=== PATIENT | female | born 1965 | race Caucasian/White ===

== ENCOUNTER 2017-08-22 13:06 | Emergency (ER) | payer MEDICARE ==
[~2017-08-22] VITALS: Ht 175.3 cm; Wt 70.3 kg
[~2017-08-22 13:06] MED LIST: BUPR100 PO; BUPR150ER PO; CHOL10002 PO; CYCL10 PO; Desyrel50 MG PO; GABA300 PO; LEVE500 PO; Norco 5-325 Ta1 EACH PO; Percocet 5-3251 EACH PO; Prozac20 MG PO; THIA100 PO; VITAMIN B-1100 MG PO; VITB2
[2017-08-22] MEDS ORDERED: DULO30 PO (13:27)
[2017-08-22] MEDS ORDERED: TRAZ150T57 PO (13:28)
[2017-08-22] MEDS ORDERED: GABA600 (13:28)
[2017-08-22 13:52] LABS: BASOPHILS ABSOLUTE AUTO 0.04 K/mm3 (0.00-0.23); BASOPHILS PERCENT AUTO 1 % (0-2); EOSINOPHILS ABSOLUTE AUTO 0.03 K/mm3 (0.00-0.68); EOSINOPHILS PERCENT AUTO 0 % (0-6); Hematocrit 41.1 % (33.0-51.0); IMMATURE GRAN ABSOLUTE AUTO 0.01 K/mm3 (0.00-0.10); IMMATURE GRAN PERCENT AUTO 0 % (0-1); LYMPHOCYTES ABSOLUTE AUTO 1.81 K/mm3 (0.84-5.20); LYMPHOCYTES PERCENT AUTO 26 % (21-46); MONOCYTES ABSOLUTE AUTO 0.68 K/mm3 (0.16-1.47); MONOCYTES PERCENT AUTO 10 % (4-13); Mean Corpuscular HGB Conc 36.5 g/dL (31.5-36.5); Mean Corpuscular Volume 99 fL (80-100); NEUTROPHILS ABSOLUTE AUTO 4.53 K/mm3 (1.96-9.15); NEUTROPHILS PERCENT AUTO 64 % (41-73); Platelet Count 191 K/mm3 (150-400); RDW Coefficient Variation 11.6 % (11.7-14.2); RDW Standard Deviation 42.4 fL (35.1-46.3); Red Blood Cell Count 4.17 M/mm3 (3.80-5.20)
[2017-08-22 15:16] LABS: Albumin, Blood 4.5 g/dL (3.4-5.0); Albumin/Globulin Ratio 1.2 (0.8-1.8); Bilirubin, Total 1.3 mg/dL (0.1-1.0); Bun/Creatinine Ratio 15.3 (12.0-20.0); Calcium, Blood 9.5 mg/dL (8.5-10.1); Creatinine, Blood 1.11 mg/dL (0.40-1.00); Globulin, Blood 3.8 g/dL (2.2-4.0); Potassium, Blood 3.5 mmol/L (3.5-5.5); Total Protein, Blood 8.3 g/dL (6.4-8.2)
== END 2017-08-22 18:35 | disposition home or self-care (01) ==
LOC: ER 13:06
PROVIDERS: Emergency Medicine
DX: S00.03XA Contusion of scalp, initial encounter (principal); R42 Dizziness and giddiness; W22.8XXA Striking against or struck by other objects, initial encounter; Z79.899 Other long term (current) drug therapy
CPT/HCPCS: 36415; 70450; 80053; 84484; 85025; 85730; 99284

== ENCOUNTER → 2018-12-19 | Outpatient (CLI) | payer MEDICARE ==
[~2018-12-19] MED LIST changes: +DULO30 PO; +GABA600; +TRAZ150T57 PO
[2018-12-20 10:56] LABS: Candida species (DNA Probe) Negative (NEGATIVE); G. vaginalis (DNA Probe) Negative (NEGATIVE); T. vaginalis (DNA Probe) Negative (NEGATIVE)
[2018-12-23 15:07] LABS: HPV 16 Negative (Negative); HPV 18 Negative (Negative); HPV OTHER HR TYPES Positive (Negative)
== END | disposition home or self-care (01) ==
LOC: LAB SHORT 17:44 → LAB 17:44
PROVIDERS: Family Medicine
DX: Z12.4 Encounter for screening for malignant neoplasm of cervix (principal); N89.8 Other specified noninflammatory disorders of vagina
CPT/HCPCS: 87480; 87510; 87624; 87625; 87660; G0145

== ENCOUNTER → 2020-09-01 | Outpatient (CLI) | payer MEDICARE | LOC: LAB 14:00 → LAB SHORT 14:00 | DX: L71.8 Other rosacea (principal); L20.89 Other atopic dermatitis | CPT/HCPCS: 87070; 87205 ==

== ENCOUNTER 2021-01-07 09:30 | Observation (INO) | payer MEDICARE ==
[~2021-01-07] VITALS: Ht 172.7 cm; Wt 68.0 kg
[~2021-01-07 09:30] MED LIST changes: +GABA100; -GABA600
[2021-01-07 10:19] LABS: BASOPHILS ABSOLUTE AUTO 0.02 K/mm3 (0.00-0.23); BASOPHILS PERCENT AUTO 0 % (0-2); EOSINOPHILS ABSOLUTE AUTO 0.02 K/mm3 (0.00-0.68); EOSINOPHILS PERCENT AUTO 0 % (0-6); Hemoglobin 14.6 g/dL (11.5-16.0); IMMATURE GRAN ABSOLUTE AUTO 0.03 K/mm3 (0.00-0.10); IMMATURE GRAN PERCENT AUTO 1 % (0-1); LYMPHOCYTES ABSOLUTE AUTO 0.87 K/mm3 (0.84-5.20); LYMPHOCYTES PERCENT AUTO 13 % (21-46); MONOCYTES ABSOLUTE AUTO 0.47 K/mm3 (0.16-1.47); MONOCYTES PERCENT AUTO 7 % (4-13); Mean Corpuscular HGB 37.4 pg (26.0-34.0); Mean Corpuscular HGB Conc 36.5 g/dL (31.5-36.5); Mean Corpuscular Volume 103 fL (80-100); Mean Platelet Volume 10.9 fL (9.1-12.4); NEUTROPHILS PERCENT AUTO 79 % (41-73); Platelet Count 72 K/mm3 (150-400); RDW Coefficient Variation 11.1 % (11.7-14.2); RDW Standard Deviation 42.4 fL (35.1-46.3); White Blood Cell Count 6.61 K/mm3 (4.00-11.30)
[2021-01-07] MEDS ORDERED: BUSP5 PO (10:37)
[2021-01-07] MEDS ORDERED: Prozac40 MG PO (10:37)
[2021-01-07 10:39] LABS: Bilirubin, Total 2.1 mg/dL (0.1-1.0); Calcium, Blood 9.5 mg/dL (8.5-10.1); Creatinine, Blood 1.09 mg/dL (0.40-1.00); Globulin, Blood 3.9 g/dL (2.2-4.0); Potassium, Blood 3.7 mmol/L (3.5-5.5); Total Protein, Blood 7.9 g/dL (6.4-8.2)
--- NOTE | 2021-01-07 18:38 | NUR ---
SHIFT SUMMARY PT RECEIVED FROM ER. ALERT AND ORIENTED X4. WEAK, BUT TRANSFERED FROM WC TO BED WITH 2 PERSON ASSIST. SLING TO RIGHT ARM FOR CLAVICLE FRACTURE. LUNG SOUNDS CLEAR, HEART TONES REGULAR. PT IS TEARFUL, BUT CALMER SHE GOT SETTLED IN BED. WILL CONTINUE TO MONITOR AND REPORT OFF TO PARISH WORKER RN.
--- NOTE | 2021-01-07 21:32 | NUR ---
PT COMPLAINED OF PAIN ACROSS THE BACK OF THE SHOULDERS. RN ASSISTED PT TO RECLINER CHAIR TO HELP REPOSITION. ICE APPLIED ON THE SHOULDER AREA. PO FLUIDS AT CHAIR SIDE. WARM BLANKETS PROVIDED. PRN PAIN MEDICATIONS PROVIDED. PT IS NOW PLAYING ON HER TABLET AND HAS CALL LIGHT IN REACH.
--- NOTE | 2021-01-08 05:16 | NUR ---
SHIFT SUMMARY PT SLEPT OFF AND ON THROUGHOUT THE NIGHT. PT OCCASSIONALLY C/O SHOULDER PAIN; PAIN TREATED WITH PRN PO PAIN MEDICATION. PT HAS PAS ON AND RUNNING. RN ASSISTED PT TO REPOSITION SEVERAL TIMES THROUGHOUT THE NIGHT FOR COMFORT. PT ALERT AND ORIENTED X4, PLEASANT AND COOPERATIVE. SHE AWOKE AT APPROXIMATELY 0500 AND REQUESTED A SANDWICH AND JUICE WHICH SHE SEEMS TO HAVE TOLERATED WELL. SHE IS CURRENTLY PLAYING GAMES ON HER PHONE AND RESTING. NS CURRENTLY RUNNING ON PUMP PER DR'S ORDERS. CALL LIGHT IN REACH, UPPER SIDE RAILS UP FOR SAFTY.
[2021-01-08 06:27] LABS: BASOPHILS ABSOLUTE AUTO 0.02 K/mm3 (0.00-0.23); BASOPHILS PERCENT AUTO 1 % (0-2); EOSINOPHILS ABSOLUTE AUTO 0.04 K/mm3 (0.00-0.68); EOSINOPHILS PERCENT AUTO 1 % (0-6); Hemoglobin 11.7 g/dL (11.5-16.0); IMMATURE GRAN ABSOLUTE AUTO 0.01 K/mm3 (0.00-0.10); IMMATURE GRAN PERCENT AUTO 0 % (0-1); LYMPHOCYTES ABSOLUTE AUTO 1.35 K/mm3 (0.84-5.20); LYMPHOCYTES PERCENT AUTO 37 % (21-46); MONOCYTES ABSOLUTE AUTO 0.38 K/mm3 (0.16-1.47); MONOCYTES PERCENT AUTO 11 % (4-13); Mean Corpuscular HGB 37.3 pg (26.0-34.0); Mean Corpuscular HGB Conc 35.5 g/dL (31.5-36.5); Mean Corpuscular Volume 105 fL (80-100); NEUTROPHILS ABSOLUTE AUTO 1.81 K/mm3 (1.96-9.15); NEUTROPHILS PERCENT AUTO 50 % (41-73); RDW Coefficient Variation 11.1 % (11.7-14.2); RDW Standard Deviation 43.5 fL (35.1-46.3); Red Blood Cell Count 3.14 M/mm3 (3.80-5.20); White Blood Cell Count 3.61 K/mm3 (4.00-11.30)
[2021-01-08 06:40] LABS: Platelet Count 50 K/mm3 (150-400)
[2021-01-08 06:48] LABS: Alanine Aminotransfer (ALT/SGP 81 U/L (12-78); Alk Phos 63 U/L (50-136); Anion Gap 7 mmol/L (6-16); Aspartate Aminotrans (AST/SGOT 149 U/L (12-37); Bilirubin, Total 1.5 mg/dL (0.1-1.0); Blood Urea Nitrogen 10 mg/dL (8-24); Bun/Creatinine Ratio 12.5 (12.0-20.0); CO2, Blood 28 mmol/L (21-32); Calcium, Blood 8.6 mg/dL (8.5-10.1); Chloride, Blood 104 mmol/L (98-108); Globulin, Blood 3.1 g/dL (2.2-4.0); Glomerular Filtration Rate >60 (60-); Glucose, Blood 125 mg/dL (70-99); Potassium, Blood 2.9 mmol/L (3.5-5.5); Sodium, Blood 139 mmol/L (136-145); Total Protein, Blood 6.1 g/dL (6.4-8.2)
--- NOTE | 2021-01-08 16:16 | NUR ---
Introduction: PT refered by physician. Assessment: PT presented seated upright in bed, melancholy expression. After a brief introduction and pleasantry I asked if PT would like to chat. PT became tearful and stated, "I feel very alone." I asked to tell me more, PT explained that she lives alone, with two cats and has no family in the area. I asked what gave PT hope, PT replied,"Friends in [place] and the hope that she'll reconnect with her mother." I asked PT what she could control, here in the hospital, PT replied with enthusiasm,"Physical Therapy, drinking lots of water, eating all her meals and getting sleep." Intervention: PT offered plan to call a neighbor to take care of cats at her home. PT offered a new focus, while at the hospital. PT offered prayer. Outcome: PT agreed to call neighbor to care for cats, and relieve a little worry. PT seemed determined to focus on healing, while at the hospital. PT accepted prayer. Follow-Up: As needed or requested.
--- NOTE | 2021-01-08 18:30 | NUR ---
SHIFT SUMMARY PT RESTING IN BED AND RECLINER THROUGHOUT THE DAY. VSS. ALERT AND ORIENTED X4. LUNG SOUNDS CLEAR, HEART TONES REGULAR. C/O "ALL OVER" PAIN /, MEDICATED WITH PRN ORDERED MEDS. BRUISING NOTED ALL OVER HER BACK AND R SHOULDER. PT APPEARS DEPRESSED, TEARFUL OFF AND ON TODAY. SPOKE WITH DYE MACHINE OPERATOR THIS AFTERNOON. WILL CONTINUE TO MONITOR AND REPORT OFF TO HOT PACKER RN.
--- NOTE | 2021-01-09 02:45 | NUR ---
NIGHTTIME ROUNDING PT SLEPT SOUNDLY UNTIL 0230. PT WOKE UP AND TURNED ON THE TABLET. PT REQUESTED A SNACK WHICH WAS PROVIDED BY RN. PT DENIES THE NEED FOR ADDITIONAL BLANKETS OR BED ADJUSTMENT. PAS CONTINUE TO RUN. CALL LIGHT IN REACH. BED IS IN IT'S LOWEST, LOCKED POSITION.
[2021-01-09 06:45] LABS: BASOPHILS ABSOLUTE AUTO 0.03 K/mm3 (0.00-0.23); BASOPHILS PERCENT AUTO 1 % (0-2); EOSINOPHILS ABSOLUTE AUTO 0.09 K/mm3 (0.00-0.68); EOSINOPHILS PERCENT AUTO 3 % (0-6); Hematocrit 32.7 % (33.0-51.0); Hemoglobin 11.3 g/dL (11.5-16.0); IMMATURE GRAN ABSOLUTE AUTO 0.02 K/mm3 (0.00-0.10); IMMATURE GRAN PERCENT AUTO 1 % (0-1); LYMPHOCYTES ABSOLUTE AUTO 1.32 K/mm3 (0.84-5.20); LYMPHOCYTES PERCENT AUTO 37 % (21-46); MONOCYTES ABSOLUTE AUTO 0.64 K/mm3 (0.16-1.47); MONOCYTES PERCENT AUTO 18 % (4-13); Mean Corpuscular HGB Conc 34.6 g/dL (31.5-36.5); Mean Corpuscular Volume 107 fL (80-100); Mean Platelet Volume 10.7 fL (9.1-12.4); NEUTROPHILS ABSOLUTE AUTO 1.48 K/mm3 (1.96-9.15); NEUTROPHILS PERCENT AUTO 41 % (41-73); Platelet Count 60 K/mm3 (150-400); RDW Coefficient Variation 11.3 % (11.7-14.2); RDW Standard Deviation 44.4 fL (35.1-46.3); Red Blood Cell Count 3.05 M/mm3 (3.80-5.20); White Blood Cell Count 3.58 K/mm3 (4.00-11.30)
[2021-01-09 07:04] LABS: Alanine Aminotransfer (ALT/SGP 72 U/L (12-78); Alk Phos 58 U/L (50-136); Anion Gap 6 mmol/L (6-16); Aspartate Aminotrans (AST/SGOT 107 U/L (12-37); Bilirubin, Total 1.1 mg/dL (0.1-1.0); Blood Urea Nitrogen 5 mg/dL (8-24); Bun/Creatinine Ratio 7.5 (12.0-20.0); CO2, Blood 28 mmol/L (21-32); Calcium, Blood 8.4 mg/dL (8.5-10.1); Chloride, Blood 103 mmol/L (98-108); Creatinine, Blood 0.66 mg/dL (0.40-1.00); Globulin, Blood 3.1 g/dL (2.2-4.0); Glomerular Filtration Rate >60 (60-); Glucose, Blood 82 mg/dL (70-99); Potassium, Blood 3.3 mmol/L (3.5-5.5); Sodium, Blood 137 mmol/L (136-145); Total Protein, Blood 6.1 g/dL (6.4-8.2)
--- NOTE | 2021-01-09 17:54 | NUR ---
SHIFT SUMMARY PT RESTING IN BED THROUGHOUT THE DAY. UP TO RECLINER X1. PT DOING PHYSICAL THERAPY EXERCISES INSTRUCTED T/O THE DAY. PT SEEMS TO BE IN BETTER SPIRITS TODAY, JOKING WITH STAFF AND SMILING. PT VERY WEAK, 1 PERSON ASSIST TO WC TO GO TO BATHROOM. C/O PAIN TO RIGHT SHOULDER, MEDICATED WITH PRN PAIN MEDS, SEE EMAR. WILL CONTINUE TO MONITOR AND REPORT OFF TO CLOTH STRETCHER.
--- NOTE | 2021-01-10 00:31 | NUR ---
NIGHTSHIFT UPDATE PT IS RESTING COMFORTABLY AT THIS TIME. NO NEEDS AT THIS TIME. CALL LIGHT IN REACH.
--- NOTE | 2021-01-10 04:39 | NUR ---
PT TO RESTROOM/PAIN TREATMENT PT WAS TAKEN TO THE RESTROOM VIA WHEELCHAIR WITH ONE PERSON TRANSFER. PT WAS ABLE TO VOID. PT RETURNED TO ROOM AND POSITIONED WITH PILLOWS. PT STATED HER PAIN WAS 8/10. RN TREATED WITH PO PAIN MEDICATION'S PER 'S ORDERS. RN OFFERRED ICE, PT DECLINED AT THIS TIME. VSS. TABLET AND CALL LIGHT PROVIDED. PAS APPLIED AND TURNED ON.
--- NOTE | 2021-01-10 06:03 | NUR ---
SHIFT SUMMARY PT SLEPT WELL THROUGHOUT THE NIGHT. PT TREATED TWICE FOR BILATERAL SHOULDER PAIN PER 'S PO PAIN MEDICATION ORDERS. VSS. PT WAS TAKEN TO THE RESTROOM IN THE WHEELCHAIR TO VOID X1. PT TRANSFERRED WITH ONE PERSON ASSIST. PT STATED "I FEEL LIKE I AM GETTING STRONGER." PT IS NOW RESTING IN BED WATCHING TV. SHE TOLERATED A SNACK AND HAS A BEVERAGE ON HER SIDE TABLE. CALL LIGHT IN REACH. BED IS IN THE LOWEST, LOCKED POSITION.
[2021-01-10 06:56] LABS: Hematocrit 32.3 % (33.0-51.0); Hemoglobin 11.3 g/dL (11.5-16.0); Mean Corpuscular HGB 37.9 pg (26.0-34.0); Mean Corpuscular Volume 108 fL (80-100); Mean Platelet Volume 10.1 fL (9.1-12.4); Platelet Count 92 K/mm3 (150-400); RDW Coefficient Variation 11.1 % (11.7-14.2); RDW Standard Deviation 44.1 fL (35.1-46.3); Red Blood Cell Count 2.98 M/mm3 (3.80-5.20); White Blood Cell Count 3.01 K/mm3 (4.00-11.30)
[2021-01-10 07:38] LABS: BASOPHILS PERCENT MAN 0 % (0-2); EOSINOPHILS ABSOLUTE MAN 0.09 K/mm3 (0.00-0.68); EOSINOPHILS PERCENT MAN 3 % (0-6); LYMPHOCYTES ABSOLUTE MAN 1.35 K/mm3 (0.84-5.20); LYMPHOCYTES PERCENT MAN 45 % (21-46); MONOCYTES ABSOLUTE MAN 0.57 K/mm3 (0.16-1.47); MONOCYTES PERCENT MAN 19 % (4-13); MYELOCYTE ABSOLUTE MAN 0.06 K/mm3 (0.00-0.00); MYELOCYTE PERCENT MAN 2 % (0-0); NEUTROPHILS ABSOLUTE MAN 0.93 K/mm3 (1.96-9.15); SEG NEUTROPHILS PERCENT MAN 31 % (41-73); TOTAL CELLS COUNTED 100
[2021-01-10 07:41] LABS: Alanine Aminotransfer (ALT/SGP 68 U/L (12-78); Albumin/Globulin Ratio 0.9 (0.8-1.8); Alk Phos 58 U/L (50-136); Anion Gap 5 mmol/L (6-16); Aspartate Aminotrans (AST/SGOT 103 U/L (12-37); Bilirubin, Total 1.1 mg/dL (0.1-1.0); Blood Urea Nitrogen 6 mg/dL (8-24); Bun/Creatinine Ratio 8.8 (12.0-20.0); CO2, Blood 29 mmol/L (21-32); Chloride, Blood 102 mmol/L (98-108); Creatinine, Blood 0.68 mg/dL (0.40-1.00); Globulin, Blood 3.2 g/dL (2.2-4.0); Glomerular Filtration Rate >60 (60-); Glucose, Blood 87 mg/dL (70-99); Magnesium, Blood 1.5 mg/dL (1.6-2.4); Potassium, Blood 4.2 mmol/L (3.5-5.5); Sodium, Blood 136 mmol/L (136-145); Total Protein, Blood 6.2 g/dL (6.4-8.2)
--- NOTE | 2021-01-10 09:33 | NUR ---
PT IS AGREEABLE TO HEAT/ICE PACKS TO PAINFUL RIGHT SHOULDER, CLAVICULAR FX. PT REPORTS PAIN AT 7/10.
--- NOTE | 2021-01-10 09:47 | NUR ---
DISCUSSION WITH PT ABOUT PT/OT. PT REQUESTING TO SEE PT, CONTACTED EARNESTINE ONOFRE AND HE IS WORKING HIS WAY OVER FROM [facility]. PT INFORMED AND AGREEABLE WITH PLAN.
--- NOTE | 2021-01-10 11:51 | NUR ---
DISCUSSION WITH PT THIS AM. PT REQUESTED TO WORK WITH PT/OT, PT SUBSEQUENTLY IN FOR THERAPY WITH PT. PT UP WITH ANDREAS WALKER AND GAIT BELT. PT AMB SHORT AMOUNT TO WC THEN FROM BATHROOM, APPROXIMATELY 20 FT PRIOR TO NEEDING WC ASSISTANCE. PT RETURNS TO ROOM AND IS TEARFUL T/O THERAPY. PT ONCE IN BED CONT TO BE TEARFUL, SAYING SHE WISHES TO NOT BE ALIVE ANY MORE. SHE HAS LONG STRUGGLED WITH DEPRESSION AND CONTINUES TO TRIAL MEDICATION FOR THIS. PT OFFERED SUPPORTIVE CARE AND OFFERED SPIRITUAL CARE CONSULT WHICH SHE HAS SEEN BEFORE. PT REFUSES THIS. PT IS VERY EMOTIONAL, TEARFUL AND FEELING HOPELESS. THIS RN ENGAGED IN A DISCUSSION WITH PT FOR THERAPEUTIC PURPOSES AND OFFERED SUGGESTIONS. PT DENIES POSSIBILITY OF REPAIRING RELATIONSHIPS WITH FAMILY. WILL CONTINUE TO MONITOR
--- NOTE | 2021-01-10 11:56 | NUR ---
OFFERED PT BED BATH AND TO MOVE TO CHAIR FROM BED. PT REFUSING BED BATH AND TO MOVE TO CHAIR AT THIS TIME.
--- NOTE | 2021-01-10 15:22 | NUR ---
pt complaining of pain in right shoulder/clavicle. pt has been varying between ice and heat. this am applied heat, now offered ice pack. polar pack pad placed to right shoulder/clavicle. pt reports improvement
--- NOTE | 2021-01-10 16:58 | NUR ---
DMIT: 01/08/21 DISCHARGE: DX: Failure to thrive CC: kwilcox XENA CALL: RESIDENCE: home CAREGIVER: self DX: Depression, CKD, hyperlipidemia, seizure disorder, see list DME: none CCM: none HOME HEALTH: none SUMMARY: 01/10/21- per chart review with Dr. Astudillo, pt is medically stable to d/c to SNF. Packet created and sent to [facility] for placement. Requested COVID test be ordered. Insurance Auth has been requested. Plan is to d/c pt tomorrow to rehab. -adrian
--- NOTE | 2021-01-10 20:29 | NUR ---
PATIENT UP TO BR VIA WC, URINATED AND BACK TO BED. PAS IN PLACE, CALL LIGHT WITHIN REACH.
[2021-01-10 22:41] LABS: SARS-Cov-2 (COVID-19) PCR, MMC NEGATIVE (NEGATIVE)
--- NOTE | 2021-01-10 23:32 | NUR ---
PATIENT REQUESTING PAIN MEDICATION, RATES PAIN 9/10, TRAMADOL GIVEN PER ORDERS. WILL REASSESS, CALL LIGHT WITHIN REACH.
--- NOTE | 2021-01-11 03:06 | NUR ---
PATIENT UP TO BR VIA , TRANSFERS TO WITH STAND BY ASSIST. PATIENT RETURNED TO BED, CALL LIGHT WITHIN REACH.
--- NOTE | 2021-01-11 04:56 | NUR ---
PATIENT RESTING THROUGHOUT NIGHT, UP TO BR WITH 1 PERSON ASSIST TO WC. PATIENT VERY PLEASANT, JOKING WITH STAFF. MEDICATED FOR PAIN PER DR.S ORDERS. VSS.
--- NOTE | 2021-01-11 06:16 | NUR ---
PATIENT UP REQUESTING PAIN MEDICATION, RATES PAIN 8/10. MEDICATED PER ORDERS. CALL LIGHT WITHIN REACH.
[2021-01-11 06:56] LABS: BASOPHILS ABSOLUTE AUTO 0.03 K/mm3 (0.00-0.23); BASOPHILS PERCENT AUTO 1 % (0-2); EOSINOPHILS ABSOLUTE AUTO 0.09 K/mm3 (0.00-0.68); EOSINOPHILS PERCENT AUTO 3 % (0-6); Hematocrit 33.6 % (33.0-51.0); Hemoglobin 11.9 g/dL (11.5-16.0); IMMATURE GRAN ABSOLUTE AUTO 0.01 K/mm3 (0.00-0.10); IMMATURE GRAN PERCENT AUTO 0 % (0-1); LYMPHOCYTES ABSOLUTE AUTO 1.01 K/mm3 (0.84-5.20); LYMPHOCYTES PERCENT AUTO 34 % (21-46); MONOCYTES ABSOLUTE AUTO 0.65 K/mm3 (0.16-1.47); MONOCYTES PERCENT AUTO 22 % (4-13); Mean Corpuscular HGB Conc 35.4 g/dL (31.5-36.5); Mean Corpuscular Volume 107 fL (80-100); Mean Platelet Volume 9.9 fL (9.1-12.4); NEUTROPHILS PERCENT AUTO 40 % (41-73); Platelet Count 123 K/mm3 (150-400); RDW Coefficient Variation 11.2 % (11.7-14.2); RDW Standard Deviation 43.8 fL (35.1-46.3); Red Blood Cell Count 3.13 M/mm3 (3.80-5.20); White Blood Cell Count 2.99 K/mm3 (4.00-11.30)
[2021-01-11 07:12] LABS: Alanine Aminotransfer (ALT/SGP 82 U/L (12-78); Albumin, Blood 3.2 g/dL (3.4-5.0); Albumin/Globulin Ratio 0.9 (0.8-1.8); Alk Phos 63 U/L (50-136); Anion Gap 6 mmol/L (6-16); Aspartate Aminotrans (AST/SGOT 141 U/L (12-37); Bilirubin, Total 1.1 mg/dL (0.1-1.0); Blood Urea Nitrogen 8 mg/dL (8-24); Bun/Creatinine Ratio 11.3 (12.0-20.0); CO2, Blood 29 mmol/L (21-32); Calcium, Blood 9.3 mg/dL (8.5-10.1); Chloride, Blood 100 mmol/L (98-108); Creatinine, Blood 0.71 mg/dL (0.40-1.00); Globulin, Blood 3.5 g/dL (2.2-4.0); Glomerular Filtration Rate >60 (60-); Glucose, Blood 83 mg/dL (70-99); Potassium, Blood 4.4 mmol/L (3.5-5.5); Sodium, Blood 135 mmol/L (136-145); Total Protein, Blood 6.7 g/dL (6.4-8.2)
--- NOTE | 2021-01-11 08:50 | NUR ---
PT AWAKE AND ALERT. CONVERSING WELL. PHYSICAL THERAPY IN PT'S ROOM AT THIS TIME. CALL LIGHT WITHIN REACH. WILL CONTINUE TO MONITOR. PT ATE BREAKFAST WELL.
--- NOTE | 2021-01-11 09:29 | NUR ---
PT RESTING ON BED AT THIS TIME. RN SPOKE TO PT ABOUT PHYSICAL THERAPY RECOMMENDATIONS. PT STARTED BEING TEARFUL WHEN PT FOUND OUT THAT SHE WILL NEED TO STAY ANOTHER NIGHT FOR HER SAFETY. PT IS OK WITH THE PLAN BUT IS TEARFUL. PT MAY BENEFIT FROM A SALES AND SERVICE OFFICER VISIT. CALL LIGHT WITHIN REACH. WILL CONTINUE TO MONITOR. RN CALLED MD FOR A PRN PAIN MEDICATION. WILL WAIT FOR A CALL BACK.
--- NOTE | 2021-01-11 11:38 | NUR ---
PT RESTING ON BED. PT TALKING MORE ABOUT HER FAMILY SITUATION. PT STATES PAIN IS NOW TOLERABLE. CALL LIGHT WITHIN REACH. WILL CONTINUE TO MONITOR.
--- NOTE | 2021-01-11 12:42 | NUR ---
PT EATING LUNCH. RN TALKED WITH PATIENT ABOUT DISCHARGE TO [facility] AND PT REFUSES TO GO TO [facility]. PT WANT TO GO HOME. RN TALKED TO EYE CLINIC MANAGER AND WILL WAIT FOR PHONE CALL BACK FROM EYE CLINIC MANAGER.
--- NOTE | 2021-01-11 13:48 | NUR ---
MONTESSORI PROGRAM DIRECTOR MARY LOU IN PT'S ROOM AT THIS TIME TO TALK ABOUT DISCHARGE PLAN.
--- NOTE | 2021-01-11 14:58 | NUR ---
Spiritual care visit attempted. Upon receiving a spiritual care referral, I visit patient. Patient declines having a visit and refuses to engage in any communication. I will continue to remain available.
[2021-01-11] MEDS ORDERED: Acetaminophen650 M1 PO (15:24)
[2021-01-11] MEDS ORDERED: ALUM-MAG HYDROX30 ML PO (15:25)
[2021-01-11] MEDS ORDERED: BISA5EC PO (15:27)
[2021-01-11] MEDS ORDERED: Norco 5-325 Ta1 EACH PO (15:28)
[2021-01-11] MEDS ORDERED: POTCHL20ER PO (15:29)
[2021-01-11] MEDS ORDERED: ONDA4 PO (15:29)
[2021-01-11] MEDS ORDERED: TRAZ50 PO (15:32)
[2021-01-11] MEDS ORDERED: SIME80CH PO (15:32)
[2021-01-11] MEDS ORDERED: TRIDERM28.4 GM TOP (15:35)
--- NOTE | 2021-01-11 15:43 | NUR ---
PT VERY UPSET AFTER FINDING OUT THAT SHE WILL BE DISCHARGED TODAY. PT REFUSED TO GO TO [facility] AND STATED SHE WANTS TO GO HOME. OK'D FOR PT TO GO HOME AND PADDLE DYEING MACHINE OPERATOR HAD TRANSPORTATION ARRANGED FOR HER TO BE PICKED UP AROUND 1800 HERE AT [facility]. PT WAS VERY UPSET AND WAS READY TO GO HOME NOW. PT DID NOT WANT TO WAIT TO GO HOME AT 1800 AND WANTED TO CALL [facility] TO TAKE HER HOME. PT LEFT WITH HARD COPY OF PAIN PRESCRIPTION BUT PT DID NOT WANT TO WAIT FOR A COPY OF HER DISCHARGE INSTRUCTIONS. PT WAS WHEELED VIA WHEEL CHAIR TO [facility]. PT LEFT WITH ALL HER BELONGINGS.
--- NOTE | 2021-01-11 15:52 | NUR ---
01/11/21- PT HAS BEEN ACCEPTED TO [facility] TODAY. WILL DISCHARGE TODAY. SPOKE WITH PT, SHE IS UPSET THAT SHE IS NOT GETTING ANSWERS TO WHY SHE IS SICK. OFFERED APPT WITH DR. ANDREWS FOR 01/13 FOR HOSPITAL F/U APPT. PT DOES NOT WANT TO KEEP APPT BUT LET HER KNOW THAT I WOULD NOT CANCEL THE APPT INCASE SHE CHANGES HER MIND ONCE SHE GETS HOME. PROVIDED PT WITH TELE-HEALTH COUNSELING INFORMATION, LOCAL RESOURCES FOR CAREGIVERS, HOUSEKEEPING RESOURCES AND FOOD. ULTIMATELY PT TOOK THE INFORMATION AND ASKED TO BE WHEELED OUT BY WHEELCHAIR. SHE WANTED [facility] AND CALL WAS PLACED TO [employer]. -MARVA 01/10/21- PER CHART REVIEW WITH DR. WALDROP, PT IS MEDICALLY STABLE TO D/C TO SNF. PACKET CREATED AND SENT TO [facility] FOR PLACEMENT. REQUESTED COVID TEST BE ORDERED. INSURANCE AUTH HAS BEEN REQUESTED. PLAN IS TO D/C PT TOMORROW TO REHAB. -MARVA
[2021-01-11 20:10] LABS: ANA DIRECT Negative (Negative); ANTI-DNA (DS) AB QN <1 IU/mL (0-9); RNP ANTIBODIES 0.3 AI (0.0-0.9); SJOGREN'S ANTI-SS-A <0.2 AI (0.0-0.9); SJOGREN'S ANTI-SS-B <0.2 AI (0.0-0.9); SMITH ANTIBODIES <0.2 AI (0.0-0.9)
== END 2021-01-11 15:15 | disposition home or self-care (01) ==
LOC: ER 09:30 → SURS 09:31 → ORSCIP 15:28 → SURS 15:28 → ER 15:28 → SURS 16:30 → ORSCIP 16:30 → SURS 01-08 15:28 → ORSCIP 01-08 15:28 → ER 01-08 15:28 → ORSCIP 01-11 15:15
PROVIDERS: Family Medicine; Physician Assistant; ADMIT Family Medicine
DX: R62.7 Adult failure to thrive (principal); Z68.22 Body mass index [BMI] 22.0-22.9, adult; R00.0 Tachycardia, unspecified; S42.031A Displaced fracture of lateral end of right clavicle, initial encounter for closed fracture; W19.XXXA Unspecified fall, initial encounter; K76.0 Fatty (change of) liver, not elsewhere classified; R79.89 Other specified abnormal findings of blood chemistry; E78.5 Hyperlipidemia, unspecified; J32.9 Chronic sinusitis, unspecified; I95.1 Orthostatic hypotension; R53.81 Other malaise; F32.9 Major depressive disorder, single episode, unspecified; D69.6 Thrombocytopenia, unspecified; R74.01 Elevation of levels of liver transaminase levels; R63.0 Anorexia; E53.8 Deficiency of other specified B group vitamins; G40.909 Epilepsy, unspecified, not intractable, without status epilepticus; L53.9 Erythematous condition, unspecified; E87.6 Hypokalemia; R19.7 Diarrhea, unspecified; R25.2 Cramp and spasm; R06.00 Dyspnea, unspecified; R53.83 Other fatigue; R05 Cough; Z20.822 Contact with and (suspected) exposure to COVID-19; Z91.81 History of falling; Z79.899 Other long term (current) drug therapy; Z96.612 Presence of left artificial shoulder joint; Z96.649 Presence of unspecified artificial hip joint; Z66 Do not resuscitate; Z88.8 Allergy status to other drugs, medicaments and biological substances
CPT/HCPCS: 36415; 70450; 71045; 71260; 73030; 74177; 76705; 80053; 82607; 82746; 83690; 83735; 83880; 84439; 84443; 84484; 85025; 86225; 86235; 93005; 93010; 93306; 97110; 97116; 97162; 99285-25; A9270; G0378; G0480; J7030; J7120; Q9967; U0004

== ENCOUNTER → 2021-06-22 | Outpatient (CLI) | payer MEDICARE ==
[~2021-06-22] MED LIST changes: +ALUM-MAG HYDROX30 ML PO; +Acetaminophen650 M1 PO; +BISA5EC PO; +BUSP5 PO; +ONDA4 PO; +POTCHL20ER PO; +Prozac40 MG PO; +SIME80CH PO; +TRAZ50 PO; +TRIDERM28.4 GM TOP
== END ==
LOC: LAB SHORT 11:15 → LAB 11:15
DX: L71.8 Other rosacea (principal); R06.02 Shortness of breath; R11.0 Nausea
CPT/HCPCS: 87070; 87205

== ENCOUNTER 2022-01-22 11:53 | Inpatient (IN) | payer MEDICARE ==
[~2022-01-22] VITALS: Ht 172.7 cm; Wt 68.0 kg
[~2022-01-22 11:53] MED LIST changes: +DOCU100 PO; -GABA100; +GUAI600T33 PO; +MAGNESIUM OXID500 MG PO; +MIRALAX17 GM PO; +PANT20 PO; +TRAZ100 PO
[2022-01-22 12:34] LABS: BASOPHILS ABSOLUTE AUTO 0.03 K/mm3 (0.00-0.23); BASOPHILS PERCENT AUTO 0 % (0-2); EOSINOPHILS PERCENT AUTO 0 % (0-6); Hematocrit 25.2 % (33.0-51.0); Hemoglobin 8.6 g/dL (11.5-16.0); IMMATURE GRAN ABSOLUTE AUTO 0.13 K/mm3 (0.00-0.10); IMMATURE GRAN PERCENT AUTO 1 % (0-1); LYMPHOCYTES ABSOLUTE AUTO 0.74 K/mm3 (0.84-5.20); LYMPHOCYTES PERCENT AUTO 5 % (21-46); MONOCYTES ABSOLUTE AUTO 1.13 K/mm3 (0.16-1.47); MONOCYTES PERCENT AUTO 8 % (4-13); Mean Corpuscular HGB 37.7 pg (26.0-34.0); Mean Corpuscular HGB Conc 34.1 g/dL (31.5-36.5); Mean Corpuscular Volume 111 fL (80-100); Mean Platelet Volume 10.2 fL (9.1-12.4); NEUTROPHILS ABSOLUTE AUTO 12.03 K/mm3 (1.96-9.15); NEUTROPHILS PERCENT AUTO 86 % (41-73); Platelet Count 278 K/mm3 (150-400); RDW Standard Deviation 87.9 fL (35.1-46.3); Red Blood Cell Count 2.28 M/mm3 (3.80-5.20); White Blood Cell Count 14.06 K/mm3 (4.00-11.30)
[2022-01-22 12:47] LABS: International Normalized Ratio 1.5; Prothrombin Time Results 15.3 Sec (9.7-11.5)
[2022-01-22 12:53] LABS: Albumin, Blood 1.8 g/dL (3.4-5.0); Albumin/Globulin Ratio 0.5 (0.8-1.8); Bilirubin, Total 13.7 mg/dL (0.1-1.0); Bun/Creatinine Ratio 40.3 (12.0-20.0); Calcium, Blood 8.2 mg/dL (8.5-10.1); Creatinine, Blood 0.45 mg/dL (0.40-1.00); Globulin, Blood 3.8 g/dL (2.2-4.0); Potassium, Blood 4.5 mmol/L (3.5-5.5); Total Protein, Blood 5.6 g/dL (6.4-8.2)
[2022-01-22 14:55] LABS: Source, Urine Straight Cath
[2022-01-22 15:23] LABS: Appearance, Urine Hazy (Clear); Blood, Urine 1+ (Neg); Glucose Qualitative, Urine Neg (Neg); Ketones, Urine 1+ (Neg); Leukocyte Esterase, Urine 1+ (Neg); Nitrite, Urine Pos (Neg); Protein, Urine 1+ (Neg); Specific Gravity, Urine 1.025 (1.003-1.022); Urobilinogen, Urine 2+ (Normal)
[2022-01-22 16:05] LABS: Bilirubin, Urine 3+ (Neg)
[2022-01-22 16:07] LABS: Color, Urine Amber (P-Yellow)
[2022-01-22 16:16] LABS: Red Blood Cells, Urine 0-2 /hpf (0-2)
[2022-01-22 16:17] LABS: Amorphous Light (0-Heavy); Bacteria Mod /hpf; Granular Casts 0-2 /lpf (0); Hyaline Casts 0-2 /lpf (0-2); Mucus Light (0-Heavy); Squamous Epithelial Cells Rare /hpf (Few); Transitional Epithelial Cells Rare /hpf (0-Rare)
[2022-01-22 19:15] LABS: SARS-Cov-2 (COVID-19) PCR, MMC NEGATIVE (NEGATIVE)
[2022-01-22 19:25] LABS: International Normalized Ratio 1.43; Prothrombin Time Results 14.7 Sec (9.7-11.5)
--- NOTE | 2022-01-23 03:28 | NUR ---
NURSE NOTE: A/OX-3, OCCASIONAL INCREASED CONFUSION AND IRRITABILITY. PT REPORTS ABDOMINAL DISCOMFORT- ABDOMINAL DISTENTION NOTED. HAYNES CATHETER REMAINS IN PLACE, DRAINING WELL WITH DARK ZOILA/YELLOW URINE APPEARANCE. BED ALARM ACTIVATED, BED IN LOW POSITION, CALL AGUILAR AND BELONGINGS IN REACH.
[2022-01-23 05:13] LABS: Albumin, Blood 1.6 g/dL (3.4-5.0); Albumin/Globulin Ratio 0.5 (0.8-1.8); Bilirubin, Total 12.3 mg/dL (0.1-1.0); Calcium, Blood 8.2 mg/dL (8.5-10.1); Creatinine, Blood 0.53 mg/dL (0.40-1.00); Globulin, Blood 3.4 g/dL (2.2-4.0); Potassium, Blood 4.3 mmol/L (3.5-5.5)
[2022-01-23 05:45] LABS: BASOPHILS ABSOLUTE AUTO 0.05 K/mm3 (0.00-0.23); BASOPHILS PERCENT AUTO 0 % (0-2); EOSINOPHILS ABSOLUTE AUTO 0.27 K/mm3 (0.00-0.68); EOSINOPHILS PERCENT AUTO 2 % (0-6); Hemoglobin 7.5 g/dL (11.5-16.0); IMMATURE GRAN ABSOLUTE AUTO 0.08 K/mm3 (0.00-0.10); IMMATURE GRAN PERCENT AUTO 1 % (0-1); LYMPHOCYTES ABSOLUTE AUTO 0.52 K/mm3 (0.84-5.20); LYMPHOCYTES PERCENT AUTO 5 % (21-46); MONOCYTES ABSOLUTE AUTO 1.09 K/mm3 (0.16-1.47); MONOCYTES PERCENT AUTO 10 % (4-13); Mean Corpuscular HGB 38.1 pg (26.0-34.0); Mean Corpuscular HGB Conc 34.1 g/dL (31.5-36.5); Mean Corpuscular Volume 112 fL (80-100); Mean Platelet Volume 10.2 fL (9.1-12.4); NEUTROPHILS ABSOLUTE AUTO 9.41 K/mm3 (1.96-9.15); NEUTROPHILS PERCENT AUTO 82 % (41-73); Platelet Count 222 K/mm3 (150-400); RDW Coefficient Variation 23.1 % (11.7-14.2); RDW Standard Deviation 89.6 fL (35.1-46.3); Red Blood Cell Count 1.97 M/mm3 (3.80-5.20); White Blood Cell Count 11.42 K/mm3 (4.00-11.30)
--- NOTE | 2022-01-23 17:27 | NUR ---
SUMMARY- PT ALERT AND ORIENTED TO SELF AND PLACE AND CIRCUMSTANCES. SHE USES CALL LIGHT APPROPRIATELY TO MAKE NEEDS KNOWN. WORKED WITH PT/OT TODAY AND GOT UP IN CHAIR FOR AN HOUR TODAY. ALSO GOT UP TO THE BEDSIDE COMMODE- PT IS 2PERSON MAX ASSIST PIVOT TX. TIRES QUICKLY. CONT PULSE OX 94-96% 2L/NC. HAD 2 LOOSE STOOLS TODAY. HAYNES DARK ZOILA URINE. TOLERATING FOOD AND FLUID. PAIN IN ABD CONTROLLED WITH VICODIN 1 APPROX Q6. WILL REPORT TO NOC RN
--- NOTE | 2022-01-23 19:05 | NUR ---
PT MATH AND SCIENCE DIVISION CHAIR- LEFT MESSAGE WITH MARY TO F/U WITH PT'S DISCHARGE THIS LAST STAY. CLOSE FAMILY FRIEND WENDY REQUESTING PT ADVOCATE TO FOLLOW PT THIS STAY AND ENSURE A SAFE DISCHARGE. ALSO SPOKE TO JOY OPERATOR- SHE EXPLAINED THAT PT REFUSED PT/OT LAST DISCHARGE AND INSISTED SHE HAD HELP AT HOME. NEIGHBORS ENDED UP CALLING POLICE TO ASSIST WITH SITUATION PT WAS UNABLE TO GET OOB, AND PT RE-ADMITTED 01/22. DR SMALLWOOD STATES THAT PT SAID SHE HAS A MOM AND DAUGHTER WHO LIVE IN [place]. NOT SURE WHY WENDY STATES SHE WAS THE CLOSEST SHE HAD TO FAMILY. REGUARDLESS, ENSURED WENDY PT ADVOCATE COULD BE INVOLVED AND WE WOULD CALL HER 01/23.
[2022-01-24 05:08] LABS: BASOPHILS ABSOLUTE AUTO 0.03 K/mm3 (0.00-0.23); BASOPHILS PERCENT AUTO 0 % (0-2); EOSINOPHILS ABSOLUTE AUTO 0.03 K/mm3 (0.00-0.68); EOSINOPHILS PERCENT AUTO 0 % (0-6); Hematocrit 21.6 % (33.0-51.0); Hemoglobin 7.1 g/dL (11.5-16.0); IMMATURE GRAN ABSOLUTE AUTO 0.07 K/mm3 (0.00-0.10); IMMATURE GRAN PERCENT AUTO 1 % (0-1); LYMPHOCYTES ABSOLUTE AUTO 0.75 K/mm3 (0.84-5.20); LYMPHOCYTES PERCENT AUTO 8 % (21-46); MONOCYTES ABSOLUTE AUTO 1.16 K/mm3 (0.16-1.47); MONOCYTES PERCENT AUTO 13 % (4-13); Mean Corpuscular HGB 37.4 pg (26.0-34.0); Mean Corpuscular HGB Conc 32.9 g/dL (31.5-36.5); Mean Corpuscular Volume 114 fL (80-100); Mean Platelet Volume 10.4 fL (9.1-12.4); NEUTROPHILS ABSOLUTE AUTO 6.97 K/mm3 (1.96-9.15); NEUTROPHILS PERCENT AUTO 77 % (41-73); Platelet Count 182 K/mm3 (150-400); RDW Standard Deviation 90.9 fL (35.1-46.3); White Blood Cell Count 9.01 K/mm3 (4.00-11.30)
[2022-01-24 05:31] LABS: Albumin, Blood 1.4 g/dL (3.4-5.0); Albumin/Globulin Ratio 0.4 (0.8-1.8); Bilirubin, Total 11.2 mg/dL (0.1-1.0); Bun/Creatinine Ratio 28.8 (12.0-20.0); Calcium, Blood 7.7 mg/dL (8.5-10.1); Creatinine, Blood 0.7 mg/dL (0.40-1.00); Globulin, Blood 3.2 g/dL (2.2-4.0); Potassium, Blood 3.7 mmol/L (3.5-5.5); Total Protein, Blood 4.6 g/dL (6.4-8.2)
--- NOTE | 2022-01-24 08:45 | NUR ---
SPOKE WITH ABOUT HAYNES PLACED IN ED 01/22 FOR INCONTENANCE. ORDERED PER DR APPROVAL.
--- NOTE | 2022-01-24 11:00 | NUR ---
Spoke with patient at 0815 per request of Bill LAMBERT on 01/23/22 regarding friend Julianne requesting patients medical information. Susy voiced that she and Julianne had an agreement that she would come here and help her. Susy stated "if she's not going to come here and help me then I don't want her to know anything, she's not just going to be nosy" I called and left a message for Julianner per patient request to see if she is able to come help the patient if needed upon discharge. If she is not willing to help her she wants her taken off her contact list and no information given. Talked to patient at length about compliance and being active in her own care as well. Update relayed to Soumya Chow
--- NOTE | 2022-01-24 15:11 | NUR ---
Initial Pal Care visit - Pt known to me previously as her dad's Pulmonary Rehab and Palliative Care RN in years past. Pt's only recent family contact locally has been her mom, Charline, listed as NOK on pt's face sheet. Her mom has dementia now and was placed in a [place] facility by pt's sister. Mom would not be a valid proxy any longer. Pt does not have a good relationship with her sister/other family members per pt. Pt does not currently have an advanced directive or POLST. She has communicated her wishes for DNR status, consistent with current orders. Supportive visit made to assess needs. Pt appears very weak, fatigued, dyspnic with conversation. She is pale, sl jaundiced in eyes and face. Aged bruising noted to Left amish and around eye. Pt reports multiple falls at home prior to last admission. Pt readmitted with pneumonia, sepsis, poss UTI, prot/westley malnutrion with Albumin 1.6 today and anemia. She has hx of myelodysplastic syndrom. Dr Stacy' PN from prev admission reviewed. Pt has not done well with following treatment and f/u plans for multiple chronic illnesses. Today she reports left sided upper abd discomfort, consistent with reports in PNs. She also reports that her head still hurts where she hit it in fall at home. Pt has hx of etoh abuse, periods of sobriety and cycles of relapse over past 6-10 years. She is working with therapy and agreeable to transfer to [facility] for SNF stay and ongoing therapy for strengthening, endurance, increased safety with mobility so that she can return home. She has someone come in once monthly for house keeping. She states she has someone caring for her two cats. She has some financial resources for hiring caregiving help and is hoping she'll have HH services when she leaves SNF initially. Pt would benefit from help determining who a good Medical Proxy for her would be. We had a lengthy visit and she seemed too fatigued to press forward with that today. Plan for Palliative Care to make a follow up visit to address this with her. I believe pt's ability to follow thru with tx recommendations, contacting providers, making calls and organizing her own care, as well as decision making is dwindling due to medical frailty and overall failure to thrive. She is tearful at times during our visit when talking about the isolaiton and lonliness of being alone and in a low resource area geographically without support/help. Time spent listening and encouraging her.
--- NOTE | 2022-01-24 17:11 | NUR ---
SHIFT SUMMARY VSS. A&O X3. APPETITE OK. PT SLEEPY STATING SHE DID NOT SLEEP WELL LAST NIGHT. PT SLEEPING NOW. FROLEY INTACT DRAINING COFFEE COLOR URINE. PT ANXIOUS AT TIMESZ BUT EASLIY REDIRECTED. PT RESTING WITH CALL LIGHT IN REACH, SIDE RAILS UP, AND BED ALARM ON FOR SAFETY.
--- NOTE | 2022-01-25 04:44 | NUR ---
SHIFT SUMMARY PATIENT IS ALERT AND ORIENTED BUT FORGETFUL. PATIENT HAS BEEN PLEASENT AND COOPERATIVE WITH CARE. PATIENT HAS BEEN SLEEPING AND COMFORTABLY RESTING MOST OF SHIFT. PATIENT HAS HAD NO ACUTE EVENTS THIS SHIFT. VITAL SIGNS REVIEWED. BED IN LOCKED AND LOWEST POSITION. CALL LIGHT IN PLACE. WILL MONITOR UNTIL SHIFT CHANGE.
[2022-01-25 08:21] LABS: Hematocrit 25.7 % (33.0-51.0); Hemoglobin 8.5 g/dL (11.5-16.0); Mean Corpuscular HGB 37.3 pg (26.0-34.0); Mean Corpuscular HGB Conc 33.1 g/dL (31.5-36.5); Mean Corpuscular Volume 113 fL (80-100); Mean Platelet Volume 10.3 fL (9.1-12.4); Platelet Count 213 K/mm3 (150-400); RDW Coefficient Variation 22.2 % (11.7-14.2); RDW Standard Deviation 87.6 fL (35.1-46.3); Red Blood Cell Count 2.28 M/mm3 (3.80-5.20); White Blood Cell Count 10.89 K/mm3 (4.00-11.30)
--- NOTE | 2022-01-25 18:47 | NUR ---
SHIFT SUMMARY PT TRANSFERRED FROM ROOM 352 TO ROOM 346. PT WORKED WITH PHYSICAL AND OCCUPATIONAL THERAPY TODAY. 2 ASSIST TO THE BSC/CHAIR WITH FWW/GB. PT IS OVERALL WEAK AND C/O PAIN IN HER ABD. TREATED PER EMR. HAYNES PATENT AND DRAINING TEA COLORED URINE.
--- NOTE | 2022-01-26 04:06 | NUR ---
SHIFT SUMMARY PATIENT IS ALERT BUT INTERMITANTLY CONFUSED. PATIENT HAS HAD NO ACUTE EVENTS THIS SHIFT. VITAL SIGNS REVIEWED. PATIENT HAS BEEN PLEASENT AND COOPERATIVE WITH CARE. PATIENT HAS NOT COMPLAINED OF PAIN, NAUSEA, SOB OR VOMITTING THIS SHIFT. BED IN LOCKED AND LOWEST POSITION. CALL LIGHT IN PLACE. WILL MONITOR UNTIL SHIFT CHANGE.
[2022-01-26 06:00] LABS: Hemoglobin 8.8 g/dL (11.5-16.0); Mean Corpuscular HGB 38.1 pg (26.0-34.0); Mean Corpuscular HGB Conc 33.8 g/dL (31.5-36.5); Mean Corpuscular Volume 113 fL (80-100); Mean Platelet Volume 10.5 fL (9.1-12.4); Platelet Count 198 K/mm3 (150-400); RDW Coefficient Variation 21.8 % (11.7-14.2); RDW Standard Deviation 86.1 fL (35.1-46.3); Red Blood Cell Count 2.31 M/mm3 (3.80-5.20); White Blood Cell Count 12.47 K/mm3 (4.00-11.30)
[2022-01-26 06:19] LABS: Albumin, Blood 1.6 g/dL (3.4-5.0); Albumin/Globulin Ratio 0.4 (0.8-1.8); Bilirubin, Total 13.7 mg/dL (0.1-1.0); Bun/Creatinine Ratio 33.2 (12.0-20.0); Calcium, Blood 7.9 mg/dL (8.5-10.1); Creatinine, Blood 0.6 mg/dL (0.40-1.00); Globulin, Blood 4.1 g/dL (2.2-4.0); Potassium, Blood 3.3 mmol/L (3.5-5.5); Total Protein, Blood 5.7 g/dL (6.4-8.2)
--- NOTE | 2022-01-26 17:44 | NUR ---
SHIFT SUMMARY PT A&OX3-4 AND IN PLEASENT MOOD T/O SHIFT. C/O PAIN MEDICATED PER EMAR. TOLERATING MIN AMOUNTS OF ORAL INTAKE. RESTED IN BED T/O SHIFT. HAYNES DRAINING TO GRAVITY-DARK BROWN URINE. CALL LIGHT W/IN REACH. TELE IN PLACE, SR. VSS. PT APPEARS QUIET AND WITHDRAWN THIS SHIFT.
--- NOTE | 2022-01-27 04:11 | NUR ---
SHIFT SUMMARY PATIENT HAS BEEN ALERT AND DROWSY THIS SHIFT. PATIENT HAS HAD NO ACUTE EVENTS THIS SHIFT. PATIENT HAS BEEN GETTING Q6 ABX FOR PNUMONIA. VITAL SIGNS REVIEWED. PATIENT HAS BEEN MEDICATED ONCE FOR ABD PAIN. PATIENT HAS NOT REPORTED ANY SOB, NAUSEA OR VOMITTING THIS SHIFT. BED IN LOCKED AND LOWEST POSITION. CALL LIGHT IN PLACE. WILL MONITOR UNTIL SHIFT CHANGE.
[2022-01-27 08:50] LABS: Hematocrit 24.9 % (33.0-51.0); Hemoglobin 8.6 g/dL (11.5-16.0); Mean Corpuscular HGB 38.6 pg (26.0-34.0); Mean Corpuscular HGB Conc 34.5 g/dL (31.5-36.5); Mean Corpuscular Volume 112 fL (80-100); Mean Platelet Volume 10.5 fL (9.1-12.4); Platelet Count 172 K/mm3 (150-400); RDW Standard Deviation 85.6 fL (35.1-46.3); Red Blood Cell Count 2.23 M/mm3 (3.80-5.20); White Blood Cell Count 15.68 K/mm3 (4.00-11.30)
[2022-01-27 09:12] LABS: Albumin, Blood 1.6 g/dL (3.4-5.0); Albumin/Globulin Ratio 0.5 (0.8-1.8); Bilirubin, Total 13.7 mg/dL (0.1-1.0); Bun/Creatinine Ratio 32.4 (12.0-20.0); Calcium, Blood 8.1 mg/dL (8.5-10.1); Creatinine, Blood 0.68 mg/dL (0.40-1.00); Globulin, Blood 3.5 g/dL (2.2-4.0); Potassium, Blood 3.3 mmol/L (3.5-5.5); Total Protein, Blood 5.1 g/dL (6.4-8.2)
--- NOTE | 2022-01-27 16:26 | NUR ---
SHIFT SUMMARY A/OX3, FORGETFUL. PLEASANT AND COOPERATIVE WITH CARE. 2 MAX ASSIST WITH GB AND FWW FOR TRANSFERS TO CHAIR/BED. TELE SR IN THE 80S. HAYNES PATENT AND DRAINING DARK TEA COLORED URINE. BP CONTINUES TO BE SOFT. BED IN LOWEST POSITION WITH CALL LIGHT IN REACH. WILL CONTINUE TO MONITOR AND REPORT TO ONCOMING RN.
--- NOTE | 2022-01-28 03:59 | NUR ---
NIGHTSHIFT SUMMARY Patient resting in bed all shift, reported severe abdominal pain. ABD bloated, tender, reports 9/10 pain. Zosyn ABX administred Q6H. Vitals stable, no other concerns. Will continue to monitor.
[2022-01-28 05:19] LABS: Hematocrit 23.9 % (33.0-51.0); Hemoglobin 8.3 g/dL (11.5-16.0); Mean Corpuscular HGB 38.8 pg (26.0-34.0); Mean Corpuscular HGB Conc 34.7 g/dL (31.5-36.5); Mean Corpuscular Volume 112 fL (80-100); Mean Platelet Volume 10.9 fL (9.1-12.4); Platelet Count 151 K/mm3 (150-400); RDW Coefficient Variation 21.6 % (11.7-14.2); RDW Standard Deviation 85.4 fL (35.1-46.3); Red Blood Cell Count 2.14 M/mm3 (3.80-5.20)
[2022-01-28 05:47] LABS: Albumin, Blood 1.4 g/dL (3.4-5.0); Albumin/Globulin Ratio 0.4 (0.8-1.8); Bilirubin, Total 13.2 mg/dL (0.1-1.0); Bun/Creatinine Ratio 35.2 (12.0-20.0); Calcium, Blood 7.7 mg/dL (8.5-10.1); Creatinine, Blood 0.74 mg/dL (0.40-1.00); Globulin, Blood 3.9 g/dL (2.2-4.0); Magnesium, Blood 2.4 mg/dL (1.6-2.4); Potassium, Blood 3.3 mmol/L (3.5-5.5); Total Protein, Blood 5.3 g/dL (6.4-8.2)
--- NOTE | 2022-01-28 17:42 | NUR ---
SHIFT SUMMARY PT A&O X 3. VSS, BP RANGES 90/60'S WHICH HAS BEEN HER USUAL. MEDICATED FOR C/O ABD PAIN WITH NORCO PER EMAR. SHE WENT TO CT SCAN THIS AFTERNOON FOR AN ABD SCAN. APPETITE IS MARGINAL. SHE IS JAUNDICED. F/C INTACT & PATENT TO GRAVITY DRAINAGE DRAINING DARK YELLOW URINE. HER LE's REMAIN EDEMATOUS. PLAN IS FOR SNF PLACEMENT IF SHE AGREES.
--- NOTE | 2022-01-29 03:05 | NUR ---
NIGHTSHIFT SUMMARY Patient resting in bed all shift, requested PRN Tylenol & Trazadone at HS. Patient awake at midnight requested PRN for abdominal pain. Patient reports increasing abdominal distension and pain, reports constant discomfort/tingling in bilateral feet. BLE +2 pitting edema, skin is yellow. Applied moi hose and elevated BLE. PRN Hydrocodone given for pain, PRN effective. IV Zosyn given Q6H. Soft Blood Pressures, Poor PO intake. Encouraging fluid intake. Will continue to monitor.
[2022-01-29 05:18] LABS: Hematocrit 21.8 % (33.0-51.0); Hemoglobin 7.3 g/dL (11.5-16.0); Mean Corpuscular HGB Conc 33.5 g/dL (31.5-36.5); Mean Corpuscular Volume 114 fL (80-100); Platelet Count 143 K/mm3 (150-400); RDW Coefficient Variation 21.5 % (11.7-14.2); RDW Standard Deviation 86.8 fL (35.1-46.3); Red Blood Cell Count 1.92 M/mm3 (3.80-5.20); White Blood Cell Count 16.59 K/mm3 (4.00-11.30)
[2022-01-29 05:48] LABS: Albumin/Globulin Ratio 0.6 (0.8-1.8); Bilirubin, Total 14.3 mg/dL (0.1-1.0); Bun/Creatinine Ratio 32.2 (12.0-20.0); Calcium, Blood 8.1 mg/dL (8.5-10.1); Creatinine, Blood 0.93 mg/dL (0.40-1.00); Globulin, Blood 3.4 g/dL (2.2-4.0); Potassium, Blood 3.5 mmol/L (3.5-5.5); Total Protein, Blood 5.4 g/dL (6.4-8.2)
--- NOTE | 2022-01-29 18:35 | NUR ---
SHIFT SUMMARY PT HAS RESTED IN BED ALL SHIFT, RE-POSITIONED FOR COMFORT OFTEN. MD ORDERED A PARACENTESIS, WILL LIKELY BE DONE TOMORROW. PT IS JAUNDICED AND HER ABD IS DISTENDED AND PAINFUL. F/C IS DRAINING DARK TEA COLORED URINE. HER APPETITE IS MARGINAL. MEDICATED FOR PAIN PER EMAR. SHE IS AGREEABLE TO SNF PLACEMENT UPON DC
--- NOTE | 2022-01-29 23:11 | NUR ---
ROOM TRANSFER: PT TRANSFERRED TO THIS RN'S CARE. RECEIVED REPORT FROM RICKEY CAUSEY RN.
--- NOTE | 2022-01-29 23:27 | NUR ---
No acute changes to patient condition this shift. Blood Pressures continue to be soft. BLE pitting edema, elevated legs, applied moi hose. ABD distended and tender. PRN Hydrocodone given with effective results. Patient transferred to a different room, handoff report to Sandra LAMBERT.
[2022-01-30 05:21] LABS: Hematocrit 22.8 % (33.0-51.0); Hemoglobin 7.8 g/dL (11.5-16.0); Mean Corpuscular HGB 39.2 pg (26.0-34.0); Mean Corpuscular HGB Conc 34.2 g/dL (31.5-36.5); Mean Corpuscular Volume 115 fL (80-100); Mean Platelet Volume 11.1 fL (9.1-12.4); Platelet Count 144 K/mm3 (150-400); RDW Coefficient Variation 21.2 % (11.7-14.2); RDW Standard Deviation 86.2 fL (35.1-46.3); Red Blood Cell Count 1.99 M/mm3 (3.80-5.20); White Blood Cell Count 17.84 K/mm3 (4.00-11.30)
[2022-01-30 05:28] LABS: International Normalized Ratio 1.46
[2022-01-30 05:58] LABS: Albumin, Blood 1.8 g/dL (3.4-5.0); Albumin/Globulin Ratio 0.5 (0.8-1.8); Bilirubin, Total 14.7 mg/dL (0.1-1.0); Bun/Creatinine Ratio 34.3 (12.0-20.0); Calcium, Blood 8.2 mg/dL (8.5-10.1); Creatinine, Blood 1.05 mg/dL (0.40-1.00); Globulin, Blood 3.6 g/dL (2.2-4.0); Potassium, Blood 3.5 mmol/L (3.5-5.5); Total Protein, Blood 5.4 g/dL (6.4-8.2)
--- NOTE | 2022-01-30 06:09 | NUR ---
FITTINGS FINISHER SUMMARY: PT TRANSFERRED TO MY CARE AFTER RECEIVING REPORT FROM PETRA LANG. ALERT BUT REQUIRES FREQUENT ORIENTATION. HAD SOME EPISODIC CONFUSION, LAST NIGHT, STATING SHE NEEDED TO "GET DOWN OFF OF THIS BUILDING". SBP <100, WHICH SEEMS TO BE CONSISTENT FOR HER OVER THE COURSE OF THE LAST WEEK. HAYNES PATENT AND DRAINING TO GRAVIT. TELEMETRY KG AT 86bpm WITH RUN OF PVC's. REPORT TO ONCOMING RN.
--- NOTE | 2022-01-30 08:30 | NUR ---
ULTRASOUND CONTACTED THIS RN REGUARDING PT PLANNED PARACENTISIS, THIS RN NOTIFED STAFF OF LOW PT, PLAN TO CONTINUE W/ PARA.
--- NOTE | 2022-01-30 16:07 | NUR ---
SHIFT SUMMARY PT A&OX4 AND IN PLEASENT MOOD T/O SHIFT. PT TOERATING MIN AMOUNTS OF ORAL INTAKE WELL, PT C/O FEELING FULL QUICKLY. PARACENTISIS THIS AM-PT C/O FEELING EXHAUSTED. PHYSICAL WORKED W/ PT, THIS RN REQUESTED OCCUPATION THERAPY TO WAIT 24 HOURS FOR PT TO RECOVER. TELE IN PLACE. 2L NC. CALL LIGHT W/IN REACH. HYPOTENSION NOTED.
--- NOTE | 2022-01-30 18:15 | NUR ---
PROLONGED QTC PER INTERNET DESIGNER TODAY AND YESTERDAY.
[2022-01-30 21:48] LABS: Body Fluid WBC Count 15 /mm3 (0-999)
[2022-01-30 22:13] LABS: Appearance, Body Fluid Clear (Clear); RBC Count, Body Fluid 62 /mm3 (0-0)
[2022-01-30 22:28] LABS: Total Cell Count, Body Fluid 50
[2022-01-30 22:29] LABS: Automated BF WBC Count 0.015 K/mm3 (0-999)
--- NOTE | 2022-01-31 04:25 | NUR ---
SHIFT SUMMARY PATIENT MEDICATED X1 FOR PAIN, DENIES NAUSEA AND SHORTNESS OF BREATH. PATIENT IS A 2P WITH A FWW FOR TRANSFERS. PATIENT SLEEPING ON AND OFF THIS SHIFT. PATIENT HAD PARACENTESIS YESTERDAY, 2.3L REMOVED. HAYNES IS PATENT AND DRAINING TO GRAVITY. PATIENT IS PLEASANT AND COOPERATIVE WITH CARE.
[2022-01-31 09:49] LABS: BASOPHILS ABSOLUTE AUTO 0.04 K/mm3 (0.00-0.23); BASOPHILS PERCENT AUTO 0 % (0-2); EOSINOPHILS ABSOLUTE AUTO 0.02 K/mm3 (0.00-0.68); EOSINOPHILS PERCENT AUTO 0 % (0-6); Hematocrit 22.1 % (33.0-51.0); Hemoglobin 7.4 g/dL (11.5-16.0); IMMATURE GRAN ABSOLUTE AUTO 0.17 K/mm3 (0.00-0.10); IMMATURE GRAN PERCENT AUTO 1 % (0-1); LYMPHOCYTES ABSOLUTE AUTO 0.57 K/mm3 (0.84-5.20); LYMPHOCYTES PERCENT AUTO 3 % (21-46); MONOCYTES PERCENT AUTO 7 % (4-13); Mean Corpuscular HGB 38.3 pg (26.0-34.0); Mean Corpuscular HGB Conc 33.5 g/dL (31.5-36.5); Mean Corpuscular Volume 115 fL (80-100); Mean Platelet Volume 10.8 fL (9.1-12.4); NEUTROPHILS ABSOLUTE AUTO 16.49 K/mm3 (1.96-9.15); NEUTROPHILS PERCENT AUTO 89 % (41-73); Platelet Count 131 K/mm3 (150-400); RDW Coefficient Variation 20.7 % (11.7-14.2); RDW Standard Deviation 85.6 fL (35.1-46.3); Red Blood Cell Count 1.93 M/mm3 (3.80-5.20); White Blood Cell Count 18.59 K/mm3 (4.00-11.30)
[2022-01-31 10:09] LABS: Albumin, Blood 1.7 g/dL (3.4-5.0); Albumin/Globulin Ratio 0.5 (0.8-1.8); Bilirubin, Total 12.8 mg/dL (0.1-1.0); Bun/Creatinine Ratio 35.9 (12.0-20.0); Calcium, Blood 8.1 mg/dL (8.5-10.1); Creatinine, Blood 1.17 mg/dL (0.40-1.00); Globulin, Blood 3.4 g/dL (2.2-4.0); Potassium, Blood 3.4 mmol/L (3.5-5.5); Total Protein, Blood 5.1 g/dL (6.4-8.2)
[2022-01-31 17:08] LABS: Source, Urine Foley catheter
[2022-01-31 17:13] LABS: Appearance, Urine Cloudy (Clear); Blood, Urine 1+ (Neg); Color, Urine Amber (P-Yellow); Glucose Qualitative, Urine Neg (Neg); Ketones, Urine Neg (Neg); Leukocyte Esterase, Urine 1+ (Neg); Nitrite, Urine Neg (Neg); Protein, Urine 2+ (Neg); Urobilinogen, Urine NORM (Normal)
--- NOTE | 2022-01-31 17:15 | NUR ---
Pt very fatigued and difficult to arrouse. Slowly woke her and gentle slow conversation about her decline and the need to protect her from suffering. Advised her that is time to contact her family and friends to help with decisions. Whe was able to track most of conversation. I called her friends jonathan and nestor clancy. They recently did an power of software licensing analyst and will with her. jonathan spoke with her a few days ago. She sent me copies of the documents and iplced one on chart and sent a copy to medical records. Pt was also wanting me to call her father having some stress and bargaining. She tried a sip of water but it was painfull. she has increasing edema. updated the charge nurse and hospitalist. Warned jonathan she may be progressing. if she declines more reccomend calling jonathan and putting her on comfort measures.
[2022-01-31 17:25] LABS: Bilirubin, Urine 3+ (Neg)
[2022-01-31 17:26] LABS: Squamous Epithelial Cells Many /hpf (Few); Yeast/Fungi Urine Many /hpf
[2022-01-31 17:27] LABS: Bacteria Mod /hpf; Hyaline Casts 0-2 /lpf (0-2)
--- NOTE | 2022-01-31 17:42 | NUR ---
SHIFT SUMMARY PT A&OX 3-4, SOME MILD CONFUSION NOTED. SIGNIFICANT CHANGE SINCE YESTERDAYS PARACENTIS NOTED-PT QUIET, RESTING, C/O NOT FEELING WELL, TIRED, MOANING. C/O PAIN MEDICATED PER EMAR. PAL CARE IN TO SEE PT THIS SHIFT. HYPOTENSION NOTED. TOLERATING MIN AMOUNTS DUE TO "FEELING FULL". UA SENT-PENDING RESULTS. CALL LIGHT W/IN REACH. HAYNES DRAINING DARK TEA COLORED URINE TO GRAVITY. EDEMA T/O, JAUNDICE.
[2022-01-31] MEDS ORDERED: DOXYCYCLINE HY100 M1 PO (21:46)
[2022-01-31] MEDS ORDERED: DESVENLAFAXINE50 M3 PO (21:47)
[2022-01-31] MEDS ORDERED: Prozac20 MG PO (21:54)
[2022-01-31] MEDS ORDERED: TRAZ50 PO (21:54)
--- NOTE | 2022-02-01 04:49 | NUR ---
SHIFT SUMMARY PATIENT MEDICATED FOR PAIN X1, DENIES NAUSEA AND SHORTNESS OF BREATH. PATIENT MEDICATED FOR SLEEP X1. PATIENT IS A 2P FOR REPOSITIONING. PATIENT LOOKS VERY LETHARGIC, VOICE WEAK, NOT ABLE TO KEEP EYES OPEN FOR ENTIRE CONVERSATION, WEAK SWALLOW. PATIENT A&O X3. PATIENT FORGETFUL, THOUGHT THIS RN WAS SOMEONE ELSE. PATIENT HAD MINIMAL FLUID INTAKE. HAYNES PATENT AND DRAINING TEA COLORED URINE. PATIENT IS PLEASANT AND COOPERATIVE WITH CARE.
[2022-02-01 05:29] LABS: BASOPHILS ABSOLUTE AUTO 0.06 K/mm3 (0.00-0.23); BASOPHILS PERCENT AUTO 0 % (0-2); EOSINOPHILS ABSOLUTE AUTO 0.04 K/mm3 (0.00-0.68); EOSINOPHILS PERCENT AUTO 0 % (0-6); Hematocrit 24.3 % (33.0-51.0); IMMATURE GRAN ABSOLUTE AUTO 0.22 K/mm3 (0.00-0.10); IMMATURE GRAN PERCENT AUTO 1 % (0-1); LYMPHOCYTES ABSOLUTE AUTO 0.82 K/mm3 (0.84-5.20); LYMPHOCYTES PERCENT AUTO 4 % (21-46); MONOCYTES ABSOLUTE AUTO 1.71 K/mm3 (0.16-1.47); MONOCYTES PERCENT AUTO 9 % (4-13); Mean Corpuscular HGB 37.7 pg (26.0-34.0); Mean Corpuscular HGB Conc 32.9 g/dL (31.5-36.5); Mean Corpuscular Volume 115 fL (80-100); Mean Platelet Volume 11.1 fL (9.1-12.4); NEUTROPHILS ABSOLUTE AUTO 16.27 K/mm3 (1.96-9.15); NEUTROPHILS PERCENT AUTO 85 % (41-73); Platelet Count 148 K/mm3 (150-400); RDW Coefficient Variation 20.2 % (11.7-14.2); RDW Standard Deviation 82.8 fL (35.1-46.3); Red Blood Cell Count 2.12 M/mm3 (3.80-5.20); White Blood Cell Count 19.12 K/mm3 (4.00-11.30)
[2022-02-01 06:10] LABS: Bun/Creatinine Ratio 38.2 (12.0-20.0); Calcium, Blood 8.6 mg/dL (8.5-10.1); Creatinine, Blood 1.36 mg/dL (0.40-1.00); Potassium, Blood 3.8 mmol/L (3.5-5.5)
--- NOTE | 2022-02-01 16:11 | NUR ---
Pt transitioned to comfort care. Symptoms well managed will continue to follow.
--- NOTE | 2022-02-01 17:17 | NUR ---
SHIFT SUMMARY PT IS PAINFUL AND LETHARGIC THIS AM. SPOKE WITH HER AT LENGTH ABOUT DIAGNOSIS AND PROGNOSIS AND DISCUSSED THE BENEFITS OF HOSPICE FOR HER. SHE WANTED FAMILY CONTACTED BUT AGREED. PT WAS TRANSFERRED TO COMFORT CARE AROUND 1100. SHE HAS SINCE BEEN MEDICATED SINCE PER EMAR AND IS MUCH MORE COMFORTABLE. SLEEPING WITH SOME AGONAL BREATHING ON 4L. BED IN LOWEST POSITIONS AND CALL LIGHT IN REACH
--- NOTE | 2022-02-02 05:09 | NUR ---
SHIFT SUMMARY: PT OPENS EYES TO VERBAL STIMULI, NO VERBAL RESPONSE. RESTING COMFORTABLY IN BED THROUGHOUT THE NIGHT. TURNED Q2H. PT SHOWS NO S/S FOR PAIN, NAUSEA, VOMITING, OR SOB. HAYNES PATENT AND DRAINING DARK TEA COLORED URINE. NO ACUTE CHANGES. WILL CONTINUE TO MONITOR.
--- NOTE | 2022-02-02 09:32 | NUR ---
Received word that pt appears to be very close to passing. Placed call to her friend Julianne at [phone]. She states she is less than 10 minutes away.
--- NOTE | 2022-02-02 09:34 | NUR ---
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 GASPING FOR AIR RESPS 30, IRREGULAR HEART RATE, TRACKS STAFF WITH EYES IN ROOM, [facility]
--- NOTE | 2022-02-02 10:09 | NUR ---
LONG TIME FRIEND AT BEDSIDE, WENDY, MEDICATED WITH ATIVAN, RESPIRATIONS 12, HEART RATE 110, WCTM
--- NOTE | 2022-02-02 18:10 | NUR ---
COMFORT CARE, NO INTERACTION, RESPIRATIONS 16 SLOW AND LABORED, 2L NC, SATS 95%, HEART RATE 80-110. MEDICATED WITH ROXINAL X2 AND ATIVAN X1, DWIGHT NGUYEN IN VISITED. PATIENT REPOSITIONED EVERY TWO HOURS. DNR, NO ACUTE CHANGES, WILL CONTINUE CC
--- NOTE | 2022-02-03 00:16 | NUR ---
ATROPINE AND ROXANOL PER MAR
--- NOTE | 2022-02-03 02:02 | NUR ---
REPOSITIONED TO RIGHT SIDE
--- NOTE | 2022-02-03 09:15 | NUR ---
HOME TOOK BODY
== END 2022-02-03 03:00 | DRG 432 ==
LOC: ER 11:53 → MEDS 17:39
PROVIDERS: Emergency Medicine; Internal Medicine; Physician Assistant; ADMIT Internal Medicine
PROC: 0W9G3ZZ Drainage of Peritoneal Cavity, Percutaneous Approach (ICD-10-PCS; principal; 2022-01-30)
DX: K70.31 Alcoholic cirrhosis of liver with ascites (principal); E43 Unspecified severe protein-calorie malnutrition; G93.41 Metabolic encephalopathy; J18.9 Pneumonia, unspecified organism; K72.00 Acute and subacute hepatic failure without coma; N39.0 Urinary tract infection, site not specified; K76.6 Portal hypertension; Z66 Do not resuscitate; Z20.822 Contact with and (suspected) exposure to COVID-19; Z51.5 Encounter for palliative care; G62.9 Polyneuropathy, unspecified; D63.0 Anemia in neoplastic disease; D46.9 Myelodysplastic syndrome, unspecified; G40.909 Epilepsy, unspecified, not intractable, without status epilepticus; F41.8 Other specified anxiety disorders; D69.59 Other secondary thrombocytopenia; E55.9 Vitamin D deficiency, unspecified; E78.5 Hyperlipidemia, unspecified; Z96.612 Presence of left artificial shoulder joint; Z68.22 Body mass index [BMI] 22.0-22.9, adult; Z90.89 Acquired absence of other organs; Z98.890 Other specified postprocedural states; Z98.84 Bariatric surgery status; Z88.8 Allergy status to other drugs, medicaments and biological substances; Z79.899 Other long term (current) drug therapy
CPT/HCPCS: 36415; 49083; 51702; 70450; 71045; 74177; 80048; 80053; 81001; 82140; 83605; 83735; 83880; 84145; 84484; 85025; 85027; 85610; 85730; 87040; 87070; 87086; 87205; 89051; 93005; 93010; 94762; 96374-59; 97110; 97116; 97162; 97166; 97530; 97535; 99285-25; A9270; J0696; J1450; J1940; J2060; J2354; J2543; J7050; P9047; Q9967; U0004